=== PATIENT | male | born 1955 | race Caucasian/White ===

== ENCOUNTER 2017-06-21 20:51 | Inpatient (IN) | payer MEDICARE ==
[~2017-06-21] VITALS: Ht 162.6 cm; Wt 88.3 kg
[~2017-06-21 20:51] MED LIST: AMOCLA875 PO; ASPI81CH PO; BISO5 PO; CLOP75 PO; GLIP2.5ER PO; LISI5 PO; METF500 PO; Percocet 7.5-31 EACH PO; Senna8.6 MG PO; TIOT18 INH
[2017-06-21] MEDS ORDERED: METO25ER PO (21:20)
[2017-06-21 21:23] LABS: BASOPHILS ABSOLUTE AUTO 0.07 K/mm3 (0.00-0.23); BASOPHILS PERCENT AUTO 1 % (0-2); EOSINOPHILS ABSOLUTE AUTO 0.16 K/mm3 (0.00-0.68); EOSINOPHILS PERCENT AUTO 2 % (0-6); Hematocrit 42.4 % (37.0-53.0); Hemoglobin 14.2 g/dL (13.5-17.5); IMMATURE GRAN ABSOLUTE AUTO 0.09 K/mm3 (0.00-0.10); IMMATURE GRAN PERCENT AUTO 1 % (0-1); LYMPHOCYTES ABSOLUTE AUTO 3.17 K/mm3 (0.84-5.20); LYMPHOCYTES PERCENT AUTO 31 % (21-46); MONOCYTES ABSOLUTE AUTO 1.04 K/mm3 (0.16-1.47); MONOCYTES PERCENT AUTO 10 % (4-13); Mean Corpuscular HGB 30.8 pg (26.0-34.0); Mean Corpuscular HGB Conc 33.5 g/dL (31.5-36.5); Mean Corpuscular Volume 92 fL (80-100); Mean Platelet Volume 10.1 fL (9.1-12.4); NEUTROPHILS ABSOLUTE AUTO 5.88 K/mm3 (1.96-9.15); NEUTROPHILS PERCENT AUTO 56 % (41-73); Platelet Count 240 K/mm3 (150-400); RDW Coefficient Variation 12.4 % (11.7-14.2); RDW Standard Deviation 41.7 fL (35.1-46.3); Red Blood Cell Count 4.61 M/mm3 (4.30-5.90); White Blood Cell Count 10.41 K/mm3 (4.00-11.30)
[2017-06-21 21:48] LABS: Alanine Aminotransfer (ALT/SGP 20 U/L (12-78); Albumin, Blood 3.2 g/dL (3.4-5.0); Albumin/Globulin Ratio 0.9 (0.8-1.8); Alk Phos 92 U/L (50-136); Anion Gap 8 mmol/L (6-16); Aspartate Aminotrans (AST/SGOT 15 U/L (12-37); Bilirubin, Total 0.2 mg/dL (0.1-1.0); Blood Urea Nitrogen 20 mg/dL (8-24); Bun/Creatinine Ratio 25.8 (12.0-20.0); CO2, Blood 24 mmol/L (21-32); Calcium, Blood 8.4 mg/dL (8.5-10.1); Chloride, Blood 107 mmol/L (98-108); Creatinine, Blood 0.77 mg/dL (0.60-1.20); Globulin, Blood 3.7 g/dL (2.2-4.0); Glomerular Filtration Rate >60 (60-); Glucose, Blood 260 mg/dL (70-99); Potassium, Blood 4.4 mmol/L (3.5-5.5); Sodium, Blood 139 mmol/L (136-145); Total Protein, Blood 6.9 g/dL (6.4-8.2); Troponin I <0.015 ng/mL (0.000-0.040)
[2017-06-22 06:12] LABS: CHOL/HDL RATIO 4.9; Cholesterol 166 mg/dL (50-200); HDL Cholesterol 34 mg/dL (>39); LDL/HDL RATIO 3.2; Low Density Lipoprotein Chol 109 mg/dL (0-110); Triglycerides 114 mg/dL (30-160); Very Low Density Lipoprot Chol 22 mg/dL (6-32)
[2017-06-22 07:49] LABS: Platelet Count 238 K/mm3 (150-400)
[2017-06-22 08:02] LABS: International Normalized Ratio 1.03; Prothrombin Time Results 10.7 Sec (9.7-11.5)
[2017-06-23 04:30] LABS: BASOPHILS ABSOLUTE AUTO 0.05 K/mm3 (0.00-0.23); BASOPHILS PERCENT AUTO 1 % (0-2); EOSINOPHILS ABSOLUTE AUTO 0.14 K/mm3 (0.00-0.68); EOSINOPHILS PERCENT AUTO 2 % (0-6); Hematocrit 38.9 % (37.0-53.0); Hemoglobin 12.9 g/dL (13.5-17.5); IMMATURE GRAN ABSOLUTE AUTO 0.07 K/mm3 (0.00-0.10); IMMATURE GRAN PERCENT AUTO 1 % (0-1); LYMPHOCYTES ABSOLUTE AUTO 2.07 K/mm3 (0.84-5.20); LYMPHOCYTES PERCENT AUTO 24 % (21-46); MONOCYTES ABSOLUTE AUTO 1.06 K/mm3 (0.16-1.47); MONOCYTES PERCENT AUTO 12 % (4-13); Mean Corpuscular HGB 30.4 pg (26.0-34.0); Mean Corpuscular HGB Conc 33.2 g/dL (31.5-36.5); Mean Corpuscular Volume 92 fL (80-100); Mean Platelet Volume 10.3 fL (9.1-12.4); NEUTROPHILS ABSOLUTE AUTO 5.25 K/mm3 (1.96-9.15); NEUTROPHILS PERCENT AUTO 61 % (41-73); Platelet Count 202 K/mm3 (150-400); RDW Coefficient Variation 12.3 % (11.7-14.2); RDW Standard Deviation 41.2 fL (35.1-46.3); Red Blood Cell Count 4.25 M/mm3 (4.30-5.90); White Blood Cell Count 8.64 K/mm3 (4.00-11.30)
[2017-06-23 04:55] LABS: Anion Gap 7 mmol/L (6-16); Blood Urea Nitrogen 15 mg/dL (8-24); Bun/Creatinine Ratio 20.9 (12.0-20.0); CO2, Blood 26 mmol/L (21-32); Calcium, Blood 8.5 mg/dL (8.5-10.1); Chloride, Blood 105 mmol/L (98-108); Creatinine, Blood 0.72 mg/dL (0.60-1.20); Glomerular Filtration Rate >60 (60-); Glucose, Blood 137 mg/dL (70-99); Sodium, Blood 138 mmol/L (136-145)
== END 2017-06-23 10:31 | disposition home or self-care (01) | DRG 247 ==
LOC: ER 20:51 → MEDS 20:52 → PCU 20:52 → ER 06-22 00:15 → MEDS 06-22 00:22 → PCU 06-22 14:20
PROVIDERS: Emergency Medicine; Family Medicine; Internal Medicine Interventional Cardiology
PROC: 3E0234Z Introduction of Serum, Toxoid and Vaccine into Muscle, Percutaneous Approach (ICD-10-PCS; 2017-06-21)
PROC: 027034Z Dilation of Coronary Artery, One Artery with Drug-eluting Intraluminal Device, Percutaneous Approach (ICD-10-PCS; principal; 2017-06-22)
PROC: 02703ZZ Dilation of Coronary Artery, One Artery, Percutaneous Approach (ICD-10-PCS; 2017-06-22)
PROC: 4A023N7 Measurement of Cardiac Sampling and Pressure, Left Heart, Percutaneous Approach (ICD-10-PCS; 2017-06-22)
PROC: B2111ZZ Fluoroscopy of Multiple Coronary Arteries using Low Osmolar Contrast (ICD-10-PCS; 2017-06-22)
DX: I21.4 Non-ST elevation (NSTEMI) myocardial infarction (principal); T82.855A Stenosis of coronary artery stent, initial encounter; E11.9 Type 2 diabetes mellitus without complications; E78.5 Hyperlipidemia, unspecified; I10 Essential (primary) hypertension; Z23 Encounter for immunization; I25.2 Old myocardial infarction; J44.9 Chronic obstructive pulmonary disease, unspecified; G47.30 Sleep apnea, unspecified; Z91.19 Patient's noncompliance with other medical treatment and regimen; E66.9 Obesity, unspecified; Z68.33 Body mass index [BMI] 33.0-33.9, adult; I25.110 Atherosclerotic heart disease of native coronary artery with unstable angina pectoris
CPT/HCPCS: 36415; 71046; 80048; 80053; 80061; 82947; 83880; 84484; 85025; 85049; 85347; 85610; 85730; 92921; 92943; 92978; 93005; 93010; 93454; 94640; 94760; 96374; 99152; 99153; 99285; C1725; C1753; C1769; C1894; C9600; G0008; G0378; J1644; J2250; J3010; J7030; J7040; Q2038; Q9967

== ENCOUNTER 2018-12-03 08:12 | Emergency (ER) | payer MEDICARE, OTHER ==
[~2018-12-03] VITALS: Ht 162.6 cm; Wt 83.9 kg
[~2018-12-03 08:12] MED LIST changes: +METO25ER PO
[2018-12-03 08:33] LABS: BASOPHILS ABSOLUTE AUTO 0.07 K/mm3 (0.00-0.23); BASOPHILS PERCENT AUTO 1 % (0-2); EOSINOPHILS ABSOLUTE AUTO 0.09 K/mm3 (0.00-0.68); EOSINOPHILS PERCENT AUTO 1 % (0-6); Hematocrit 48.3 % (37.0-53.0); Hemoglobin 16.2 g/dL (13.5-17.5); IMMATURE GRAN PERCENT AUTO 1 % (0-1); LYMPHOCYTES ABSOLUTE AUTO 2.66 K/mm3 (0.84-5.20); LYMPHOCYTES PERCENT AUTO 23 % (21-46); MONOCYTES PERCENT AUTO 9 % (4-13); Mean Corpuscular HGB 31.3 pg (26.0-34.0); Mean Corpuscular HGB Conc 33.5 g/dL (31.5-36.5); Mean Corpuscular Volume 93 fL (80-100); Mean Platelet Volume 10.1 fL (9.1-12.4); NEUTROPHILS ABSOLUTE AUTO 7.63 K/mm3 (1.96-9.15); NEUTROPHILS PERCENT AUTO 66 % (41-73); Platelet Count 249 K/mm3 (150-400); RDW Coefficient Variation 12.1 % (11.7-14.2); RDW Standard Deviation 41.9 fL (35.1-46.3); Red Blood Cell Count 5.18 M/mm3 (4.30-5.90); White Blood Cell Count 11.65 K/mm3 (4.00-11.30)
[2018-12-03] MEDS ORDERED: METO50ER PO (08:47)
[2018-12-03] MEDS ORDERED: CLOP75 PO (08:48)
[2018-12-03] MEDS ORDERED: METF500C PO (08:48)
[2018-12-03] MEDS ORDERED: GLIP2.5ER PO (08:48)
[2018-12-03] MEDS ORDERED: LISI20 PO (08:48)
[2018-12-03 08:50] LABS: Alanine Aminotransfer (ALT/SGP 20 U/L (12-78); Albumin, Blood 3.4 g/dL (3.4-5.0); Albumin/Globulin Ratio 0.8 (0.8-1.8); Alk Phos 58 U/L (50-136); Anion Gap 7 mmol/L (6-16); Aspartate Aminotrans (AST/SGOT 19 U/L (12-37); Bilirubin, Total 0.7 mg/dL (0.1-1.0); Blood Urea Nitrogen 25 mg/dL (8-24); Bun/Creatinine Ratio 30.1 (12.0-20.0); CO2, Blood 23 mmol/L (21-32); Chloride, Blood 108 mmol/L (98-108); Creatinine, Blood 0.83 mg/dL (0.60-1.20); Glomerular Filtration Rate >60 (60-); Glucose, Blood 135 mg/dL (70-99); Potassium, Blood 4.4 mmol/L (3.5-5.5); Sodium, Blood 138 mmol/L (136-145); Total Protein, Blood 7.4 g/dL (6.4-8.2); Troponin I <0.015 ng/mL (0.000-0.040)
[2018-12-18] MEDS ORDERED: TIOT18 INH (16:21)
[2018-12-18] MEDS ORDERED: Aspir 8181 MG PO (16:31)
== END 2018-12-03 11:37 | disposition home or self-care (01) ==
LOC: ER 08:12
PROVIDERS: Emergency Medicine
DX: K85.90 Acute pancreatitis without necrosis or infection, unspecified (principal); I25.2 Old myocardial infarction; Z87.891 Personal history of nicotine dependence; Z88.8 Allergy status to other drugs, medicaments and biological substances; Z79.899 Other long term (current) drug therapy; Z79.84 Long term (current) use of oral hypoglycemic drugs
CPT/HCPCS: 36415; 71046; 76705; 80053; 83690; 84484; 85025; 93005; 93010; 99285-25

== ENCOUNTER 2019-02-20 01:59 | Emergency (ER) | payer MEDICARE, OTHER ==
[~2019-02-20] VITALS: Ht 160 cm; Wt 74.8 kg
[~2019-02-20 01:59] MED LIST changes: +Aspir 8181 MG PO; +LISI20 PO; +METF500C PO; +METO50ER PO
[2019-02-20 02:23] LABS: BASOPHILS ABSOLUTE AUTO 0.05 K/mm3 (0.00-0.23); BASOPHILS PERCENT AUTO 1 % (0-2); EOSINOPHILS ABSOLUTE AUTO 0.19 K/mm3 (0.00-0.68); EOSINOPHILS PERCENT AUTO 2 % (0-6); Hematocrit 44.8 % (37.0-53.0); Hemoglobin 14.5 g/dL (13.5-17.5); IMMATURE GRAN ABSOLUTE AUTO 0.04 K/mm3 (0.00-0.10); IMMATURE GRAN PERCENT AUTO 0 % (0-1); LYMPHOCYTES ABSOLUTE AUTO 2.08 K/mm3 (0.84-5.20); LYMPHOCYTES PERCENT AUTO 23 % (21-46); MONOCYTES ABSOLUTE AUTO 0.93 K/mm3 (0.16-1.47); MONOCYTES PERCENT AUTO 10 % (4-13); Mean Corpuscular HGB 31.3 pg (26.0-34.0); Mean Corpuscular HGB Conc 32.4 g/dL (31.5-36.5); Mean Corpuscular Volume 97 fL (80-100); Mean Platelet Volume 10.5 fL (9.1-12.4); NEUTROPHILS ABSOLUTE AUTO 5.89 K/mm3 (1.96-9.15); NEUTROPHILS PERCENT AUTO 64 % (41-73); Platelet Count 221 K/mm3 (150-400); RDW Coefficient Variation 13.7 % (11.7-14.2); RDW Standard Deviation 48.4 fL (35.1-46.3); Red Blood Cell Count 4.63 M/mm3 (4.30-5.90); White Blood Cell Count 9.18 K/mm3 (4.00-11.30)
[2019-02-20 02:44] LABS: Troponin I <0.015 ng/mL (0.000-0.040)
[2019-02-20 02:45] LABS: Alanine Aminotransfer (ALT/SGP 25 U/L (12-78); Albumin, Blood 3.3 g/dL (3.4-5.0); Alk Phos 66 U/L (50-136); Anion Gap 11 mmol/L (6-16); Aspartate Aminotrans (AST/SGOT 22 U/L (12-37); Bilirubin, Total 0.6 mg/dL (0.1-1.0); Blood Urea Nitrogen 20 mg/dL (8-24); Bun/Creatinine Ratio 26.6 (12.0-20.0); CO2, Blood 23 mmol/L (21-32); Calcium, Blood 8.9 mg/dL (8.5-10.1); Chloride, Blood 108 mmol/L (98-108); Creatinine, Blood 0.75 mg/dL (0.60-1.20); Globulin, Blood 3.4 g/dL (2.2-4.0); Glomerular Filtration Rate >60 (60-); Glucose, Blood 147 mg/dL (70-99); Potassium, Blood 3.3 mmol/L (3.5-5.5); Sodium, Blood 142 mmol/L (136-145); Total Protein, Blood 6.7 g/dL (6.4-8.2)
== END 2019-02-20 03:08 | disposition home or self-care (01) ==
LOC: ER 01:59
PROVIDERS: Emergency Medicine
DX: I48.91 Unspecified atrial fibrillation (principal); I25.2 Old myocardial infarction; Z87.891 Personal history of nicotine dependence; Z88.8 Allergy status to other drugs, medicaments and biological substances; Z79.899 Other long term (current) drug therapy; Z79.02 Long term (current) use of antithrombotics/antiplatelets; Z79.82 Long term (current) use of aspirin; Z79.84 Long term (current) use of oral hypoglycemic drugs
CPT/HCPCS: 80053; 84484; 85025; 93005; 93010; 96374; 99285-25

== ENCOUNTER 2019-12-24 15:41 | Emergency (ER) | payer MEDICARE, OTHER ==
[~2019-12-24] VITALS: Ht 162.6 cm; Wt 67.6 kg
[2019-12-24 16:27] LABS: BASOPHILS ABSOLUTE AUTO 0.06 K/mm3 (0.00-0.23); BASOPHILS PERCENT AUTO 1 % (0-2); EOSINOPHILS ABSOLUTE AUTO 0.12 K/mm3 (0.00-0.68); EOSINOPHILS PERCENT AUTO 1 % (0-6); Hematocrit 42.2 % (37.0-53.0); Hemoglobin 14.1 g/dL (13.5-17.5); IMMATURE GRAN ABSOLUTE AUTO 0.04 K/mm3 (0.00-0.10); IMMATURE GRAN PERCENT AUTO 1 % (0-1); LYMPHOCYTES ABSOLUTE AUTO 1.76 K/mm3 (0.84-5.20); LYMPHOCYTES PERCENT AUTO 20 % (21-46); MONOCYTES ABSOLUTE AUTO 0.87 K/mm3 (0.16-1.47); MONOCYTES PERCENT AUTO 10 % (4-13); Mean Corpuscular HGB 31.3 pg (26.0-34.0); Mean Corpuscular HGB Conc 33.4 g/dL (31.5-36.5); Mean Corpuscular Volume 94 fL (80-100); Mean Platelet Volume 9.9 fL (9.1-12.4); NEUTROPHILS ABSOLUTE AUTO 5.84 K/mm3 (1.96-9.15); NEUTROPHILS PERCENT AUTO 67 % (41-73); Platelet Count 263 K/mm3 (150-400); RDW Standard Deviation 41.8 fL (35.1-46.3); White Blood Cell Count 8.69 K/mm3 (4.00-11.30)
[2019-12-24 17:05] LABS: Alanine Aminotransfer (ALT/SGP 19 U/L (12-78); Albumin, Blood 2.9 g/dL (3.4-5.0); Albumin/Globulin Ratio 0.8 (0.8-1.8); Alk Phos 61 U/L (50-136); Anion Gap 9 mmol/L (6-16); Aspartate Aminotrans (AST/SGOT 24 U/L (12-37); Bilirubin, Total 0.8 mg/dL (0.1-1.0); Blood Urea Nitrogen 19 mg/dL (8-24); Bun/Creatinine Ratio 25.9 (12.0-20.0); CO2, Blood 22 mmol/L (21-32); Calcium, Blood 8.2 mg/dL (8.5-10.1); Chloride, Blood 111 mmol/L (98-108); Creatinine, Blood 0.73 mg/dL (0.60-1.20); Globulin, Blood 3.7 g/dL (2.2-4.0); Glomerular Filtration Rate >60 (60-); Glucose, Blood 112 mg/dL (70-99); Magnesium, Blood 1.8 mg/dL (1.6-2.4); Sodium, Blood 142 mmol/L (136-145); Total Protein, Blood 6.6 g/dL (6.4-8.2); Troponin I <0.015 ng/mL (0.000-0.040)
== END 2019-12-24 17:45 | disposition home or self-care (01) ==
LOC: ER 15:41
PROVIDERS: Emergency Medicine
DX: I48.91 Unspecified atrial fibrillation (principal); Z88.8 Allergy status to other drugs, medicaments and biological substances; Z79.84 Long term (current) use of oral hypoglycemic drugs; Z79.82 Long term (current) use of aspirin; Z79.899 Other long term (current) drug therapy; I25.2 Old myocardial infarction
CPT/HCPCS: 80053; 83735; 84484; 85025; 93005; 93010; 96374; 99285-25

== ENCOUNTER 2022-09-11 02:57 | Observation (INO) | payer MEDICARE ==
[~2022-09-11] VITALS: Ht 165.1 cm; Wt 91.3 kg
[2022-09-11] VITALS (45 sets, daily range): BP systolic 115–185; BP diastolic 73–137
[2022-09-11 03:25] LABS: Calcium, Ionized (POC) 0.95 mmol/L (1.10-1.46); Chloride (POC) 106 mmol/L (98-108); Creatinine (POC) 0.7 mg/dL (0.8-1.3); Glucose (ISTAT POC) 130 mg/dL (70-99); Hemoglobin (POC) 13.3 g/dL (13.5-17.5); Potassium (POC) 3.2 mmol/L (3.5-5.5); Sodium (POC) 145 mmol/L (135-148); Total CO2 (POC) 24 mmol/L (21-32)
[2022-09-11] MEDS ORDERED: METO100ER PO (03:30)
[2022-09-11] MEDS ORDERED: ELIQUIS5 M2 PO (03:38)
[2022-09-11 04:37] LABS: BASOPHILS ABSOLUTE AUTO 0.05 K/mm3 (0.00-0.23); BASOPHILS PERCENT AUTO 1 % (0-2); EOSINOPHILS PERCENT AUTO 1 % (0-6); Hematocrit 38.2 % (37.0-53.0); Hemoglobin 12.6 g/dL (13.5-17.5); IMMATURE GRAN ABSOLUTE AUTO 0.05 K/mm3 (0.00-0.10); IMMATURE GRAN PERCENT AUTO 1 % (0-1); LYMPHOCYTES ABSOLUTE AUTO 2.08 K/mm3 (0.84-5.20); LYMPHOCYTES PERCENT AUTO 27 % (21-46); MONOCYTES ABSOLUTE AUTO 0.77 K/mm3 (0.16-1.47); MONOCYTES PERCENT AUTO 10 % (4-13); Mean Corpuscular Volume 94 fL (80-100); Mean Platelet Volume 10.5 fL (9.1-12.4); NEUTROPHILS ABSOLUTE AUTO 4.78 K/mm3 (1.96-9.15); NEUTROPHILS PERCENT AUTO 61 % (41-73); Platelet Count 191 K/mm3 (150-400); RDW Coefficient Variation 12.4 % (11.7-14.2); RDW Standard Deviation 42.9 fL (35.1-46.3); Red Blood Cell Count 4.06 M/mm3 (4.30-5.90); White Blood Cell Count 7.83 K/mm3 (4.00-11.30)
[2022-09-11 04:50] LABS: Albumin, Blood 2.2 g/dL (3.4-5.0); Albumin/Globulin Ratio 0.8 (0.8-1.8); Bilirubin, Total 0.2 mg/dL (0.1-1.0); Bun/Creatinine Ratio 23.4 (12.0-20.0); Calcium, Blood 6.9 mg/dL (8.5-10.1); Creatinine, Blood 0.77 mg/dL (0.60-1.20); Globulin, Blood 2.6 g/dL (2.2-4.0); Potassium, Blood 3.4 mmol/L (3.5-5.5); Total Protein, Blood 4.8 g/dL (6.4-8.2)
[2022-09-11 05:03] LABS: Prothrombin Time Results >90.0 Sec (9.7-11.5)
[2022-09-11 05:05] LABS: International Normalized Ratio >10.00
--- NOTE | 2022-09-11 05:30 | NUR ---
ASSUMED CARE PATIENT ARRIVED FROM [facility] AWAKE, A&OX4. NO FAMILY AT BEDSIDE. TR BAND IN PLACE TO R WRIST. PATIENT ON RA LUNGS SOUNDS CLEAR/DIM. HR 120-130'S AFIB. SOUNDS PRESENT. BURNING CHEST PAIN STILL PRESENT, HOWEVER PATIENT REPORTS "95% BETTER" POST CATH.
[2022-09-11 06:44] LABS: International Normalized Ratio 1.08; Prothrombin Time Results 11.3 Sec (9.7-11.5)
--- NOTE | 2022-09-11 07:20 | NUR ---
ASSUMED CARE: REPORT RECEIVED FROM ANGÉLICA Saez RN. ASSUMED CARE OF THIS PT AT APPROX 0700. ON ASSESSMENT, THE PT IS RESTING QUIETLY & AWAKENS EASILY TO VERBAL STIMULUS. HE IS A&O TO ALL AT THAT TIME. HE CURRENTLY DENIES ANY CP OR OTHER DISCOMFORT. LS DIM IN BASES, PT ON RA W/ O2 SATS > 95%. MONITOR SHOWS AFIB W/ HR 120-130s, HTN W/ DBP 100s. PT HAS NO GI COMPLAINTS & STS LAST BM THIS AM. VOIDS URINE W/O DIFFICULTY USING URINAL. SKIN CONDITION OVERALL INTACT, PT REPOSITIONED Q2H TO MAINTAIN SKIN INTEGRITY. RIGHT RADIAL PUNCTURE SITE S/P CORONARY ANGIOGRAM W/ STENT PLACEMENT. TR BAND IN PLACE, FULLY INFLATED AT THIS TIME. SITE WNL; NO BLEEDING, BRUISING OR HEMATOMA FORMATION NOTED. WILL CONTINUE TO MONITOR & UPDATE NEEDED.
--- NOTE | 2022-09-11 07:35 | NUR ---
DR LIU: PROVIDER AT BEDSIDE THIS AM TO EVAL PT. DISCUSSED PT's CURRENT STATUS & IMPROVING HTN/ TACHYCARDIA SINCE AM DOSE METOPROLOL. MAY ORDER ONE TIME IVP OR PRN MEDS IF HTN INCREASES AGAIN. NO OTHER CHANGES AT THIS TIME.
[2022-09-11] MEDS ORDERED: NOVOLIN 70100 UNIT/4 SC (08:28)
--- NOTE | 2022-09-11 10:30 | NUR ---
UPDATE: THIS RN HAS COMPLETED PT ADMISSION & UPON DISCUSSION REGARDING CODE STATUS, THIS RN HAS BEEN INFORMED THAT THE PT HAS AN ADVANCED DIRECTIVE ON FILE STATING HE WOULD LIKE TO BE "DO NOT RESUSCITATE" STATUS INSTEAD OF "FULL CODE" ORDERS CURRENTLY REFLECT. THIS RN HAS PRINTED ADVANCED DIRECTIVE & NOTIFIED PROVIDER, ORDERS WILL BE UPDATED THE PT IS NO LONGER IN THE IMMEDIATE POST-OP RECOVERY PERIOD S/P ANGIOGRAM. THIS RN HAS ALSO NOTIFIED THE PROVIDER THAT THE PT's HR & BP REMAIN ELEVATED. ONE TIME IVP LOPRESSOR ORDERED.
--- NOTE | 2022-09-11 11:50 | NUR ---
DR ROSENBERG: PROVIDER AT BEDSIDE TO EVAL PT THIS AM. DISCUSSED PROCEDURE & STENT PLACEMENT. INTOLERANCE TO STATINS HAS BEEN DISCUSSED & THIS PT MAY NEED TO TAKE AN INJECTABLE MEDICATION THAT HE HAS TAKEN IN THE PAST FOR THIS ISSUE. ALSO DISCUSED ELEVATED HR & BP AFTER LOPRESSOR IVP x2. HE WOULD LIKE AN ADDITIONAL 100 MG METOPROLOL SUCCINATE TO BE GIVEN. CLARIFIED THAT THE PT RECEIVED SCHEDULED DOSE AT APPROX 0630 THIS AM & IS SCHEDULED TO RECEIVE 100 MG AT HS WELL. HE CONFIRMS THAT HE WOULD LIKE AN ADDITIONAL DOSE GIVEN NOW. OKAY TO CHANGE PT STATUS FROM ICU. DISCUSSED W/ HOSPITALISTS THIS AM WHO STATED PCU STATUS IF CLEARED W/ CARDIO, ORDERS PLACED FOR TRANSFER TO PCU. NO OTHER CHANGES AT THIS TIME.
[2022-09-11] MEDS ORDERED: CLOP75 PO (17:56)
[2022-09-11] MEDS ORDERED: REPATHA SU140 MG/1 M SC (17:57)
[2022-09-11] MEDS ORDERED: PANT20 PO (17:57)
--- NOTE | 2022-09-11 19:11 | NUR ---
SHIFT SUMMARY / DISCHARGE TO HOME: NO ACUTE CHANGES THIS SHIFT. PT REMAINS A&O, PLEASANT & COOPERATIVE. HE IS COMPLIANT W/ RADIAL SITE PRECAUTIONS & CONTINUES TO DENY ANY CP OR DISCOMFORT. PT ON RA W/ O2 SATS > 95%. MONITOR SHOWS SR W/ HR 70-80s, CONVERTED FROM AFIB RVR AT APPROX 1515. BP LABILE W/ HTN INCREASING THIS EVENING. DR ROSENBERG STS PT IS OKAY TO D/C HOME THIS EVENING BUT BP CONTINUES TO BE ELEVATED. DR LIU HAS BEEN NOTIFIED & REQUESTED THAT HS DOSE OF LISINOPRIL BE GIVEN EARLY & FOR BP TO BE RECHECKED. THERE HAS BEEN SOME IMPROVEMENT TO THE BP & PROVIDERS HAVE DECIDED TO DISCHARGE THE PT HOME THIS EVENING. HE CONTINUES TO HAVE NO GI/ COMPLAINTS OR DIFFICULTIES. RIGHT RADIAL SITE WNL; NO BLEEDING, BRUISING OR HEMATOMA FORMATION. WRIST IMMOBILIZER IN PLACE AT TIME OF DISCHARGE. THE PT & HIS HAVE VERBALIZED UNDERSTANDING OF ALL DISCHARGE INSTRUCTIONS. PLAVIX CONTRACT & RADIAL SITE PRECAUTIONS PAPERS HAVE BEEN SIGNED. ALL MONITORS & PIVs REMOVED. THE PT HAS GOTTEN HIMSELF DRESSED, GATHERED HIS BELONGINGS BELONGINGS & BEEN TAKEN OUT VIA WC BY WILIAN LEON, AT APPROX 1910.
== END 2022-09-11 19:30 | disposition home or self-care (01) ==
LOC: ER 02:57 → ICUE 03:54 → ICUW 03:54 → ICUE 04:42
PROVIDERS: Student in an Organized Health Care Education/Training Program; ADMIT Internal Medicine
DX: I21.19 ST elevation (STEMI) myocardial infarction involving other coronary artery of inferior wall (principal); T82.855A Stenosis of coronary artery stent, initial encounter; Y71.8 Miscellaneous cardiovascular devices associated with adverse incidents, not elsewhere classified; I25.10 Atherosclerotic heart disease of native coronary artery without angina pectoris; I48.0 Paroxysmal atrial fibrillation; I10 Essential (primary) hypertension; E78.5 Hyperlipidemia, unspecified; E11.9 Type 2 diabetes mellitus without complications; J44.9 Chronic obstructive pulmonary disease, unspecified; I25.2 Old myocardial infarction; I77.1 Stricture of artery; Z66 Do not resuscitate; K21.9 Gastro-esophageal reflux disease without esophagitis; G47.33 Obstructive sleep apnea (adult) (pediatric); Z95.5 Presence of coronary angioplasty implant and graft; Z87.891 Personal history of nicotine dependence; Z79.01 Long term (current) use of anticoagulants; Z79.82 Long term (current) use of aspirin; Z79.899 Other long term (current) drug therapy
CPT/HCPCS: 76937; 80047; 80053; 82947; 84484; 85014; 85025; 85347; 85610; 93005; 93010; 93306; 93454; 96374; 96376; 99152; 99153; 99285-25; A9270; C1725; C1769; C1874; C1887; C1894; C9113; C9600; C9606; G0378; J1644; J1815; J2250; J3010; J3480; J7030; J7050; Q9967

== ENCOUNTER → 2024-07-22 | Outpatient (CLI) | payer MEDICARE ==
[~2024-07-22] MED LIST changes: +ELIQUIS5 M2 PO; +METO100ER PO; +NOVOLIN 70100 UNIT/4 SC; +PANT20 PO; +REPATHA SU140 MG/1 M SC
[2024-07-22 13:24] LABS: Microalb/Creat Ratio UR, Rand 16.407 mg/g (0.000-30.000); Microalbumin, Random Urine 27.4 mg/L (0.000-20.000)
[2024-07-22 16:19] LABS: BASOPHILS ABSOLUTE AUTO 0.06 K/mm3 (0.00-0.23); BASOPHILS PERCENT AUTO 1 % (0-2); EOSINOPHILS ABSOLUTE AUTO 0.12 K/mm3 (0.00-0.68); EOSINOPHILS PERCENT AUTO 1 % (0-6); Hematocrit 44.3 % (37.0-53.0); Hemoglobin 15.1 g/dL (13.5-17.5); IMMATURE GRAN ABSOLUTE AUTO 0.05 K/mm3 (0.00-0.10); IMMATURE GRAN PERCENT AUTO 1 % (0-1); LYMPHOCYTES ABSOLUTE AUTO 1.94 K/mm3 (0.84-5.20); LYMPHOCYTES PERCENT AUTO 21 % (21-46); MONOCYTES ABSOLUTE AUTO 0.87 K/mm3 (0.16-1.47); MONOCYTES PERCENT AUTO 9 % (4-13); Mean Corpuscular HGB 30.9 pg (26.0-34.0); Mean Corpuscular HGB Conc 34.1 g/dL (31.5-36.5); Mean Corpuscular Volume 91 fL (80-100); Mean Platelet Volume 10.4 fL (9.1-12.4); NEUTROPHILS ABSOLUTE AUTO 6.36 K/mm3 (1.96-9.15); NEUTROPHILS PERCENT AUTO 68 % (41-73); Platelet Count 246 K/mm3 (150-400); RDW Coefficient Variation 12.5 % (11.7-14.2); RDW Standard Deviation 41.4 fL (35.1-46.3); Red Blood Cell Count 4.89 M/mm3 (4.30-5.90)
[2024-07-22 16:56] LABS: Alanine Aminotransfer (ALT/SGP 18 U/L (12-78); Albumin, Blood 3.5 g/dL (3.4-5.0); Alk Phos 83 U/L (50-136); Anion Gap 8 mmol/L (3-11); Aspartate Aminotrans (AST/SGOT 15 U/L (12-37); Bilirubin, Total 0.4 mg/dL (0.1-1.0); Blood Urea Nitrogen 16 mg/dL (8-24); Bun/Creatinine Ratio 24.8 (12.0-20.0); CHOL/HDL RATIO 2.4; CO2, Blood 27 mmol/L (21-32); Chloride, Blood 105 mmol/L (98-108); Cholesterol 105 mg/dL (50-200); Creatinine, Blood 0.64 mg/dL (0.60-1.20); Globulin, Blood 3.6 g/dL (2.2-4.0); Glomerular Filtration Rate 101 (60-); Glucose, Blood 142 mg/dL (70-99); HDL Cholesterol 43 mg/dL (>39); LDL/HDL RATIO 0.9; Low Density Lipoprotein Chol 38 mg/dL (0-110); Potassium, Blood 4.1 mmol/L (3.5-5.5); Sodium, Blood 136 mmol/L (136-145); Total Protein, Blood 7.1 g/dL (6.4-8.2); Triglycerides 119 mg/dL (30-160); Very Low Density Lipoprot Chol 23 mg/dL (6-32)
== END ==
LOC: LAB SHORT 09:40 → LAB 09:40
PROVIDERS: Family Medicine
DX: E11.9 Type 2 diabetes mellitus without complications (principal); Z79.899 Other long term (current) drug therapy
CPT/HCPCS: 80053; 80061; 82043; 82306; 82570; 84443; 85025

== ENCOUNTER 2025-02-27 19:36 | Inpatient (IN) | payer MEDICARE ==
[~2025-02-27] VITALS: Ht 162.6 cm; Wt 80.4 kg
[2025-02-27 21:19] LABS: Prothrombin Time Results 11.7 Sec (9.7-11.5)
[2025-02-27] MEDS ORDERED: Diltiazem HCl 5 MG / ML 5ML Vial IV ONE (21:20)
[2025-02-27] MEDS ORDERED: NS 1,000 ML IV SCH (21:20)
[2025-02-27 21:32] LABS: Source, Urine Clean Catch
[2025-02-27 21:36] LABS: Alanine Aminotransfer (ALT/SGP 23.0 U/L (12-78); Albumin, Blood 3.2 g/dL (3.4-5.0); Albumin/Globulin Ratio 1.0 (0.8-1.8); Anion Gap 9.0 mmol/L (3-11); Aspartate Aminotrans (AST/SGOT 15.0 U/L (12-37); Bilirubin, Total 0.4 mg/dL (0.1-1.0); Blood Urea Nitrogen 19.0 mg/dL (8-24); CO2, Blood 25.0 mmol/L (21-32); Calcium, Blood 8.7 mg/dL (8.5-10.1); Chloride, Blood 109.0 mmol/L (98-108); Creatinine, Blood 0.61 mg/dL (0.60-1.20); Globulin, Blood 3.2 g/dL (2.2-4.0); Glucose, Blood 123.0 mg/dL (70-99); Magnesium, Blood 1.8 mg/dL (1.6-2.4); Phosphorus, Blood 1.7 mg/dL (2.5-4.9); Potassium, Blood 3.7 mmol/L (3.5-5.5); Sodium, Blood 139.0 mmol/L (136-145); Thyroid Stimulating Hormone 1.69 uIU/mL (0.360-4.800); Total Protein, Blood 6.4 g/dL (6.4-8.2)
[2025-02-27 21:36] LABS: Bilirubin, Urine Neg (Neg); Color, Urine Yellow (P-Yellow); Glucose Qualitative, Urine 4+ (Neg); Ketones, Urine 4+ (Neg); Leukocyte Esterase, Urine Neg (Neg); Protein, Urine Neg (Neg); Specific Gravity, Urine 1.020 (1.003-1.022); Urobilinogen, Urine NORM (Normal)
[2025-02-27 21:41] LABS: BASOPHILS ABSOLUTE AUTO 0.04 K/mm3 (0.00-0.23); BASOPHILS PERCENT AUTO 0 % (0-2); EOSINOPHILS ABSOLUTE AUTO 0.06 K/mm3 (0.00-0.68); EOSINOPHILS PERCENT AUTO 1 % (0-6); Hematocrit 41.7 % (37.0-53.0); Hemoglobin 13.7 g/dL (13.5-17.5); IMMATURE GRAN ABSOLUTE AUTO 0.06 K/mm3 (0.00-0.10); IMMATURE GRAN PERCENT AUTO 1 % (0-1); LYMPHOCYTES ABSOLUTE AUTO 1.57 K/mm3 (0.84-5.20); LYMPHOCYTES PERCENT AUTO 16 % (21-46); MONOCYTES ABSOLUTE AUTO 1.29 K/mm3 (0.16-1.47); MONOCYTES PERCENT AUTO 13 % (4-13); Mean Corpuscular HGB Conc 32.9 g/dL (31.5-36.5); Mean Corpuscular Volume 91 fL (80-100); NEUTROPHILS ABSOLUTE AUTO 6.79 K/mm3 (1.96-9.15); NEUTROPHILS PERCENT AUTO 69 % (41-73); NRBC ABSOLUTE 0.00 K/mm3 (0.00-0.02); NRBC Auto 0.0 /100 WBC (0.0-0.2); Platelet Count 263 K/mm3 (150-400); RDW Coefficient Variation 14.3 % (11.7-14.2); RDW Standard Deviation 47.8 fL (35.1-46.3)
[2025-02-27 22:03] LABS: Red Blood Cells, Urine 0-2 /hpf (0-2); White Blood Cells, Urine 0-2 /hpf (0-5)
[2025-02-28] VITALS (18 sets, daily range): BP systolic 78–147; BP diastolic 57–99
[2025-02-28] MEDS ORDERED: FLU VACC TS2025(65UP)/MF59C/PF 45 MCG/0.5 ML SYRINGE IM ONE (00:05)
[2025-02-28] MEDS ORDERED: Tiotropium Bromide 2.5 MCG/ACT MIST INHAL (10 ACT/4 GM) INH SCH (01:35)
[2025-02-28] MEDS ORDERED: DEXTROMETHORPHAN/BENZOCAINE 1 EACH LOZENGE MT PRN (02:05)
[2025-02-28 03:50] LABS: Albumin, Blood 3.0 g/dL (3.4-5.0); Anion Gap 12 mmol/L (3-11); Blood Urea Nitrogen 14 mg/dL (8-24); CO2, Blood 21 mmol/L (21-32); Calcium, Blood 8.1 mg/dL (8.5-10.1); Chloride, Blood 109 mmol/L (98-108); Creatinine, Blood 0.61 mg/dL (0.60-1.20); Glucose, Blood 119 mg/dL (70-99); Phosphorus, Blood 2.4 mg/dL (2.5-4.9); Potassium, Blood 3.5 mmol/L (3.5-5.5); Sodium, Blood 138 mmol/L (136-145)
--- NOTE | 2025-02-28 04:00 | NUR ---
UPDATE: PHARMACY WANTS TO KNOW EXACTLY WHICH DAY THE PT TOOK HIS EVOLOCUMAB (REPATHA), WHICH IS A Q 14 DAY CHOLESTEROL MED. DAY WAS GUESSED AT 02/11 (SUN) IN THE MED REC. PT SAYS HE WILL CALL HIS THIS MORNING TO LOOK AT MED CALENDAR.
[2025-02-28 06:08] LABS: Influenza A/2009-H1 Not Detected (NOT DETECT); SARS-Cov-2 (COVID-19), BioFire Not Detected (NOT DETECT)
[2025-02-28] MEDS ORDERED: CALCIUM GLUC IN NACL, ISO-OSM 50 ML IV ONE (07:00)
--- NOTE | 2025-02-28 07:17 | NUR ---
SHIFT SUMMARY PT AWAKE AND ORIENTED, IN NO APPARENT DISTRESS, SOMEWHAT SICK APPEARING. 98.2 F VIA TEMPORAL PROBE. NO PAIN COMPLAINTS. A FIB/FLUTTER RHYTHM STILL ONGOING AT RATE 85-105 ON 5 OF CARDIZEM. BP STABLE. NO CORONARY TYPE CHEST PAIN. NO SOB AT REST WITH CURRENT HEART RATE. SAT > 92% ON RA; DIM THROUGHOUT; COUGH PRODUCTIVE OF SPUTUM YET TO BE VISUALIZED. RESP PANEL IS PENDING. NO BM. NO AB PAIN, N/V. URINE OUTPUT 200 PLUS ONE UNMEASURED ACCIDENT DURING URINAL USE ATTEMPT. 500ML OF LR AT 100ML/HR INFUSING AT END OF SHIFT. K 3.5. PT STRUGGLED WITH KCL TAB, SO ONLY 20MEQ OF THE 40 WERE CONSUMED- DAY RN INFORMED OF THIS. 0800 DOSE HAS BEEN ORDERED WELL. BEDSIDE SHIFT REPORT GIVEN TO DAY RN.
[2025-02-28] MEDS ORDERED: Polyethylene Glycol 3350 17 gm PO PRN (07:20)
--- NOTE | 2025-02-28 07:30 | NUR ---
ASSUMED CARE THIS RN ASSUMED CARE OF PT AT 0700 WITH PRECEPTOR LUIS BETTS. PATIENT IS FULLY AWAKE, ALERT AND ORIENTED X4 AND PARTICIPATES IN BSSR. HE IS CURRENTLY ON RA WITH SPO2 >98%. HE IS ON DILTIAZEM 5MG/MIN AND LR 100ML/HR. SYSTOLIC BP >110, MAP >65. HR 70-80S DURING REPORT. PT DOES NOT REPORT ANY COMPLAINTS OF SOB OR CHEST PAIN. HE IS ABLE TO URINATE IN BEDSIDE URINAL AND AMBULATE WITH 1 PERSON ASSIST. CALL LIGHT IN REACH. BED IN LOWEST POSITION.
[2025-02-28] MEDS ORDERED: Insulin Isoph 70 / Reg 30 100 Unit/ML 10ML Vial SC SCH (08:00)
--- NOTE | 2025-02-28 08:28 | NUR ---
PALLIATIVE CARE NOTE: CONSULT RECEIVED FOR CARDIAC, READMISSION AND ADVANCED CARE PLANNING. MEDICAL RECORD REVIEW COMPLETED. PT DOES HAVE A COMPLETED ADVANCE DIRECTIVE ON FILE. NO POLST ON FILE OR THROUGH [facility]. PT IS CURRENTLY A DNR.
--- NOTE | 2025-02-28 11:11 | NUR ---
PALLIATIVE CARE VISIT: MET WITH PT AT 10 AM. PT IS AWAKE, A/O X4, AGREEABLE TO VISIT. SHADY IS PRESENT. DISCUSSED AD AND POLST. PT STATES AD IS UP TO DATE. PT EDUCATED ON WHAT A POLST IS. PT DECLINED TO COMPLETE A POLST STATING HIS WILL BE ABLE TO MAKE THOSE DECISIONS IF HE IS UNABLE TO. WE DISCUSSED HIS ILLNESS. PT IS VERY KNOWLEDGABLE ABOUT A-FIB. PT STATES HE TAKES ELIQUIS AND PLAVIX. PT STATES HE THINKS ONSET OF A-FIB WAS CAUSED BY A COLD HE GOT FROM A FRIEND HE WAS VISITING WITH. PT STATES HE IS FEELING MUCH BETTER NOW. DENIES SOB, PAIN, [place]. DENIES ANY OTHER CONCERNS OR QUESTIONS. PLAN IS FOR PT TO DISCHARGE HOME TONIGHT LONG THERE ARE NO OTHER CHANGES.
[2025-02-28] MEDS ORDERED: Magnesium Sulf 2 GM/Water 50ML 50 ML IV ONE (11:40)
[2025-02-28] MEDS ORDERED: Diltiazem HCl 5 MG / ML 5ML Vial IV ONE (17:05)
--- NOTE | 2025-02-28 18:57 | NUR ---
SHIFT SUMMARY PATIENT HAS BEEN ALERT AND ORIENTED X4 THIS SHIFT. HE HAS BEEN ACTIVELY PARTICPATING IN HIS CARE. MOST OF THIS SHIFT HIS HR HAS BEEN IN THE 70-80S, SYSTOLIC BP >120. AT 1630 PATIENT CONVERTED TO AFIB W/ RVR AND REPORTED FEELING SOB AND SICK "LIKE THE FIRST TIME" HE WAS IN AFIB. SPOKE TO DR. AYERS AND RESTARTED DILTIAZEM PER EMAR. HE IS CURRENTLY ON 15MG/HR. OTHERWISE HIS SPO2 HAS BEEN >98% ON RA. HE HAS HAD A GOOD APPETITE AND ATE 75-80% OF ALL MEALS. HE VOIDS WITH 1 NURSE ASSIST IN THE TOILET. HE IS CURRENTLY RESTING IN CHAIR AND WATCHING TELEVISION CALL LIGHT IN REACH. [facility]
--- NOTE | 2025-02-28 19:48 | NUR ---
ASSUME CARE: BEDSIDE SHIFT REPORT RECIEVED FROM KRYSTYNAMAFT RN. PT A/Ox4 AND PLEASANT WITH CARE. PT UP IN CHAIR, ABLE TO AMBULATE TO TOILET AND BACK TO BED WITH SBA, USES CALL LIGHT APPROPRIATELY. SBP 130s-140s, MAP>65, PT DENIES CP OR PRESSURE. MONITOR SHOWS AFIB, RATE 90-130s, CARDIZEM GTT INITIALLY AT 15 MG/HR, SEE FLOWSHEET FOR TITRATIONS. SPO2>90% ON RA, DOES NOT COMPLAIN OF SOB AT THIS TIME. WILL UPDATE NEEDED.
[2025-03-01] VITALS (45 sets, daily range): BP systolic 76–143; BP diastolic 50–110
[2025-03-01 03:58] LABS: Hematocrit 39.3 % (37.0-53.0); Hemoglobin 13.0 g/dL (13.5-17.5); Mean Corpuscular HGB Conc 33.1 g/dL (31.5-36.5); Mean Corpuscular Volume 91 fL (80-100); NRBC ABSOLUTE 0.00 K/mm3 (0.00-0.02); NRBC Auto 0.0 /100 WBC (0.0-0.2); Platelet Count 253 K/mm3 (150-400); RDW Coefficient Variation 14.3 % (11.7-14.2); RDW Standard Deviation 48.0 fL (35.1-46.3)
[2025-03-01 04:16] LABS: Alanine Aminotransfer (ALT/SGP 22.0 U/L (12-78); Albumin, Blood 2.9 g/dL (3.4-5.0); Albumin/Globulin Ratio 0.9 (0.8-1.8); Anion Gap 10.0 mmol/L (3-11); Aspartate Aminotrans (AST/SGOT 14.0 U/L (12-37); Bilirubin, Total 0.4 mg/dL (0.1-1.0); Blood Urea Nitrogen 12.0 mg/dL (8-24); CO2, Blood 26.0 mmol/L (21-32); Calcium, Blood 9.2 mg/dL (8.5-10.1); Chloride, Blood 108.0 mmol/L (98-108); Creatinine, Blood 0.77 mg/dL (0.60-1.20); Globulin, Blood 3.4 g/dL (2.2-4.0); Glucose, Blood 120.0 mg/dL (70-99); Magnesium, Blood 2.1 mg/dL (1.6-2.4); Phosphorus, Blood 3.2 mg/dL (2.5-4.9); Potassium, Blood 4.1 mmol/L (3.5-5.5); Sodium, Blood 140.0 mmol/L (136-145); Total Protein, Blood 6.3 g/dL (6.4-8.2)
--- NOTE | 2025-03-01 06:10 | NUR ---
SHIFT SUMMARY: PT IS DOING WELL AND RESTING IN BED. NO ACUTE CHANGES THROUGHOUT THE SHIFT. PT IS ALERT AND ABLE TO MAKE THEIR NEEDS KNOWN. PT WAS ABLE TO SLEEP MOST OF THE NIGHT. VITAL SIGNS REMIAN STABLE AND PT REMAINS OF CARDIZEM GTT PER EMR ORDERS. IV: POWERGLIDE IN LUE. PT IS ABLE TO AMBULATE WITH MINIMAL ASSSIST. LINES AND CORDS PLACED OUT OF REACH. CALL LIGHT PLACED WITHIN REACH.
[2025-03-01] MEDS ORDERED: Polyethylene Glycol 3350 17 gm PO PRN (07:40)
[2025-03-01] MEDS ORDERED: Diltiazem HCl 180 MG Cap.CD PO SCH (08:00)
--- NOTE | 2025-03-01 11:03 | NUR ---
ASSUMPTION OF CARE ASSUMED CARE OF PT APPROX 0700. PT IS A/O X4, SITTING UP IN BED WATCHING TELEVISION. ABLE TO ANSWER QUESTIONS APPROPRIATELY AND MAKE NEEDS KNOWN. PT RHYTHM IS AFLUTTER WITH RATES FROM THE 90S-140S, CARDIZEM GTT INFUSING VIA LINDA POWERGLIDE AND TITRATED PER EMAR, BP IS STABLE WITH MAP >65, SATS >90% ON RA. PT IS ABLE TO AMBULATE TO BEDSIDE COMMODE AND CHAIR WITH SB ASSIST, REMINDED PT OF IMPORTANCE OF CALLING BEFORE EXITING BED FOR FALL PREVENTION. DENIES UNMET NEEDS AT THIS TIME, CALL LIGHT WITHIN REACH.
[2025-03-01] MEDS ORDERED: Amiodarone HCl 450 MG in NS 250 ML IV SCH (14:25)
--- NOTE | 2025-03-01 17:06 | NUR ---
TRANSFER PT TRANSFER TO MEDICAL FLOOR, ALL BELONGINGS AND DENTURES DEPARTED WITH PATIENT. PT MEDICATED PER JUN PRIOR TO TRANSFER OFF UNIT.
--- NOTE | 2025-03-01 18:18 | NUR ---
SHIFT SUMMARY PT REMAINS A/O X4, ABLE TO USE CALL LIGHT AND EXPRESS NEEDS. PT RHYTHM REMAINS ATRIAL FLUTTER WITH RATES FROM 70S-130S, BP HAS BEEN LABILE WITH SYSTOLIC RANGING 90S-130S, MAP REMAINING > 65. CARDIOLOGY CONSULTED TODAY, GREGG GTT D/C AND STARTED AMIODARONE GTT -SEE FLOWSHEET. PLAN FOR CARDIOVERSION WITH ANESTHESIA TOMORROW, PT WILL BE NPO AFTER MIDNIGHT. PT SATS REMAIN >90% ON RA. PT IS ABLE TO AMBULATE TO BEDSIDE CHAIR AND TO TOILET WITH SB ASSIST, EDUCATION REINFORCED T/O SHIFT ON IMPORTANCE OF CALLING FOR SB ASSIST FOR FALL PREVENTION, PT RECEPTIVE. CALL LIGHT WITHIN REACH.
--- NOTE | 2025-03-01 20:07 | NUR ---
ASSUMPTION OF CARE: ASSUMED CARE AT START OF SHIFT (1899). REPORT RECEIVED FROM DAY SHIFT RN. PT IS DOING WELL AND RESTING IN BED. PT IS ALER AND FOLLOWING COMMANDS. PT DENIES ANY PAIN, CP, OR SOB AT THIS TIME. LUNG SOUNDS ARE CLEAR, ON RA WITH SPO2 >95%. A-FIB WITH SBP: 100'S MAP >65 HR: 120-140'S. ON AMIODARONE GTT PER EMR ORDERS. IV: POWER GLIDE IN LUE. PT ABLE TO AMBULATE WITH MINIMAL ASSISTANCE. LINES AND CORDS PLACED OUT OF REACH. CALL LIGHT PLACED WITHIN REACH. PT WILL BE NPO AFTER MIDNIGHT FOR CARDIOVERSION PROCEDURE TOMORROW.
[2025-03-02 00:04] VITALS: BP 108/50
[2025-03-02 04:00] VITALS: BP 138/55
[2025-03-02 04:18] LABS: BASOPHILS ABSOLUTE AUTO 0.05 K/mm3 (0.00-0.23); BASOPHILS PERCENT AUTO 1 % (0-2); EOSINOPHILS ABSOLUTE AUTO 0.11 K/mm3 (0.00-0.68); EOSINOPHILS PERCENT AUTO 1 % (0-6); Hematocrit 38.2 % (37.0-53.0); Hemoglobin 12.8 g/dL (13.5-17.5); IMMATURE GRAN ABSOLUTE AUTO 0.10 K/mm3 (0.00-0.10); IMMATURE GRAN PERCENT AUTO 1 % (0-1); LYMPHOCYTES ABSOLUTE AUTO 1.72 K/mm3 (0.84-5.20); LYMPHOCYTES PERCENT AUTO 17 % (21-46); MONOCYTES ABSOLUTE AUTO 1.41 K/mm3 (0.16-1.47); MONOCYTES PERCENT AUTO 14 % (4-13); Mean Corpuscular HGB Conc 33.5 g/dL (31.5-36.5); Mean Corpuscular Volume 92 fL (80-100); NEUTROPHILS ABSOLUTE AUTO 7.05 K/mm3 (1.96-9.15); NEUTROPHILS PERCENT AUTO 67 % (41-73); NRBC ABSOLUTE 0.00 K/mm3 (0.00-0.02); NRBC Auto 0.0 /100 WBC (0.0-0.2); Platelet Count 244 K/mm3 (150-400); RDW Coefficient Variation 14.1 % (11.7-14.2); RDW Standard Deviation 47.3 fL (35.1-46.3)
[2025-03-02 04:39] LABS: Alanine Aminotransfer (ALT/SGP 19.0 U/L (12-78); Albumin, Blood 3.0 g/dL (3.4-5.0); Albumin/Globulin Ratio 0.9 (0.8-1.8); Anion Gap 10.0 mmol/L (3-11); Aspartate Aminotrans (AST/SGOT 14.0 U/L (12-37); Bilirubin, Total 0.5 mg/dL (0.1-1.0); Blood Urea Nitrogen 17.0 mg/dL (8-24); CO2, Blood 27.0 mmol/L (21-32); Calcium, Blood 9.1 mg/dL (8.5-10.1); Chloride, Blood 106.0 mmol/L (98-108); Creatinine, Blood 0.75 mg/dL (0.60-1.20); Globulin, Blood 3.2 g/dL (2.2-4.0); Glucose, Blood 122.0 mg/dL (70-99); Potassium, Blood 4.0 mmol/L (3.5-5.5); Sodium, Blood 139.0 mmol/L (136-145); Total Protein, Blood 6.2 g/dL (6.4-8.2)
--- NOTE | 2025-03-02 06:16 | NUR ---
SHIFT SUMMARY: PT IS DOING WELL AND RESTING IN BED. PT DENIES ANY PAIN, CP, OR SOB AT THIS TIME. PT WAS ABLE TO SLEEP MOST OF THE NIGHT. AROUND 2229 PT RYTHM CONVERTED TO SINUS RYTHM AND HAS MAINTAINED SINUS RYTHM THE REMAINDER OF THE SHIFT. PT REMAINS OF AMIODARONE GTT PER EMR ORDERS. VITAL SIGNS HAVE BEEN STABLE. IV: POWERGLIDE IN LUE. PT ABLE TO AMBULATE WITH MINIMAL ASSISTANCE. LINES AND CORDS PLACED OUT OF REACH. CALL LIGHT PLACED WITHIN REACH.
[2025-03-02 10:15] VITALS: BP 138/68
[2025-03-02 12:06] VITALS: BP 125/69
[2025-03-02] MEDS ORDERED: JARDIANCE25 MG PO (12:43)
[2025-03-02] MEDS ORDERED: AMIODARONE HCL200 M1 PO ×2 (12:47→12:50)
[2025-03-02] MEDS ORDERED: Amiodarone HCl200 MG PO (12:51)
[2025-03-02 15:30] VITALS: BP 156/74
--- NOTE | 2025-03-02 15:49 | NUR ---
DISCHARGE NO ACUTE EVENTS THIS SHIFT, COMPLETED AMIODARONE GTT PER ORDERS AND PRESCRIPTIONS SENT TO PHARMACY FOR PO BRIDGE. PT REMAINED IN SINUS RHYTHM T/O SHIFT WITH RATES IN THE 70S, BP REMAINED STABLE WITH MAP >65. PT DID NOT EXPERIENCE ANY CP, SOB, DIZZINESS, MAINTATED SP02 >93% ON RA. THOROUGH DISCHARGE EDUCATION PROVIDED, PT VERBALIZED UNDERSTANDING, TO BEDSIDE AT DISCHARGE, POWERGLIDE REMOVED AND ALL PT BELONGINGS RETURNED. PT LEFT UNIT ON FOOT WITH .
[2025-03-04] MEDS ORDERED: Misc. Injectable SC SCH (09:00)
== END 2025-03-02 15:45 | disposition home or self-care (01) | DRG 310 ==
LOC: ER 19:36 → PCU 19:37 → ICUE 02-28 00:47
PROVIDERS: Emergency Medicine; Registered Nurse; Student in an Organized Health Care Education/Training Program; ADMIT Student in an Organized Health Care Education/Training Program
DX: I48.92 Unspecified atrial flutter (principal); I10 Essential (primary) hypertension; E11.9 Type 2 diabetes mellitus without complications; J44.9 Chronic obstructive pulmonary disease, unspecified; E78.5 Hyperlipidemia, unspecified; I25.2 Old myocardial infarction; E86.0 Dehydration; J06.9 Acute upper respiratory infection, unspecified; Z66 Do not resuscitate; E83.39 Other disorders of phosphorus metabolism; K21.9 Gastro-esophageal reflux disease without esophagitis; G47.33 Obstructive sleep apnea (adult) (pediatric); R82.4 Acetonuria; R81 Glycosuria; E83.51 Hypocalcemia; I48.0 Paroxysmal atrial fibrillation; Z95.5 Presence of coronary angioplasty implant and graft; Z90.49 Acquired absence of other specified parts of digestive tract; Z87.891 Personal history of nicotine dependence; Z98.890 Other specified postprocedural states; Z79.01 Long term (current) use of anticoagulants; Z79.4 Long term (current) use of insulin; Z79.02 Long term (current) use of antithrombotics/antiplatelets; Z79.82 Long term (current) use of aspirin; Z79.899 Other long term (current) drug therapy; Z88.8 Allergy status to other drugs, medicaments and biological substances
CPT/HCPCS: 0202U; 36415; 71046; 80053; 80069; 81001; 82947; 83036; 83735; 83880; 84100; 84443; 84484; 85025; 85027; 85610; 85730; 93005; 93010; 93306; 94640; 94664; 94760; 94762; 96361; 96365; 96366; 96367; 96375; 96376; 99285-25; A9270; C1751; G0378; J0282; J0612; J1815; J3475; J7030; J7050; J7120

== ENCOUNTER 2025-03-06 11:01 | Emergency (ER) | payer MEDICARE ==
[~2025-03-06] VITALS: Ht 162.6 cm; Wt 77.1 kg
[~2025-03-06 11:01] MED LIST changes: +AMIODARONE HCL200 M1 PO; +Amiodarone HCl200 MG PO; +JARDIANCE25 MG PO
[2025-03-06] MEDS ORDERED: NS 500 ML IV SCH (12:20)
[2025-03-06 12:45] VITALS: BP 108/84
== END 2025-03-06 12:46 | disposition home or self-care (01) ==
LOC: ER 11:01
DX: I48.91 Unspecified atrial fibrillation (principal); I10 Essential (primary) hypertension; I25.2 Old myocardial infarction; E78.5 Hyperlipidemia, unspecified; E11.9 Type 2 diabetes mellitus without complications; J44.9 Chronic obstructive pulmonary disease, unspecified; G47.30 Sleep apnea, unspecified; Z95.5 Presence of coronary angioplasty implant and graft; Z87.891 Personal history of nicotine dependence; Z88.8 Allergy status to other drugs, medicaments and biological substances; Z79.01 Long term (current) use of anticoagulants; Z79.4 Long term (current) use of insulin; Z79.02 Long term (current) use of antithrombotics/antiplatelets; Z79.84 Long term (current) use of oral hypoglycemic drugs; Z79.899 Other long term (current) drug therapy
CPT/HCPCS: 99284-25